=== PATIENT | female | born 1975 | race Asian ===

== ENCOUNTER 2018-08-23 07:35 | Day surgery (SDC) | payer OTHER ==
[2018-08-23] VITALS (15 sets, daily range): BP systolic 115–137; BP diastolic 57–87; PULSE 52–72; RESP 16–23; Ht 154.9 cm; Wt 61.8 kg
[~2018-08-23] VITALS: Ht 154.9 cm; Wt 61.8 kg
[~2018-08-23 07:35] MED LIST: ALBU8.5H5 IH; ALBU8.5H8 INH; PRED20TA PO
[2018-08-23] MEDS ORDERED: LAMO100T PO (08:27)
[2018-08-23] MEDS ORDERED: CLON0.5T14 PO (08:27)
[2018-08-23] MEDS ORDERED: BUPR300T4 PO (08:27)
[2018-08-23] MEDS ORDERED: POTA10TA37 PO (08:28)
[2018-08-23] MEDS ORDERED: SOD CHLORIDE 0.9% 1,000 ML IV SCH (09:00)
[2018-08-23] MEDS ORDERED: CEFAZOLIN 2 GM/50 ML (PMX) 50 ML IVPB SCH (09:00)
--- NOTE | 2018-08-23 11:41 | PREAC ---
Date/Time of Note Date/Time of Note DATE: 08/23/18 TIME: 11:40 Anesthesia Eval and Record Evaluation Time Pre-Procedure Interview DATE: 08/23/18 TIME: 11:40 Age 42 Sex female NPO: 8 hrs Preoperative diagnosis cholelithiasis Planned procedure laparoscopic cholecystectomy Past Medical History Past Medical History: Includes Pulm: Asthma Psych: Bipolar Surgery & Anesthesia Issues No known issue Meds Anticoagulation: No Beta Jair within 24 hr: No Reason Beta Jair not given: Pt. not on B-Jair Reported Medications Potassium Chloride* (K-Dur*) 10 Meq Tab.prt.sr, 10 MEQ PO DAILY, TAB 08/23/18 Clonazepam* (Clonazepam*) 0.5 Mg Tablet, 0.5 MG PO DAILY PRN for ANXIETY, TAB 08/23/18 Lamotrigine* (Lamotrigine*) 100 Mg Tablet, 125 MG PO BID, TAB 08/23/18 Bupropion Hcl* (Bupropion XL*) 300 Mg Tab.sr.24h, 300 MG PO DAILY, TAB.SA 08/23/18 Discontinued Reported Medications Albuterol Sulfate* (Albuterol Sulfate* HFA) 8.5 Gm Hfa.aer.ad, 2 PUFF IH Q4H PRN for WHEEZING AND SOB, EA 01/28/15 Discontinued Scripts Albuterol Sulfate* (Proair HFA*) 8.5 Gm Hfa.aer.ad, 2 PUFF INH Q4, #1 INHALER Prov:JEYSON BLEVINS PA-C 04/06/16 Prednisone* (Prednisone*) 20 Mg Tab, 40 MG PO DAILY for 4 Days, TAB Prov:JEYSON BLEVINS PA-C 04/06/16 Current Medications Cefazolin Sodium/ Dextrose 50 ml @ 100 mls/hr PRE-OP IVPB ; Start 08/23/18 at 09:00; Stop 08/23/18 at 13:00 Sodium Chloride 1,000 ml @ 75 mls/hr [id number] IV Last administered on 08/23/18at 08:50; Admin Dose 75 MLS/HR; Start 08/23/18 at 09:00 Meds reviewed: Yes Allergies Coded Allergies: No Known Allergy (Verified , 08/23/18) Allergies Reviewed: Yes Labs/Studies Labs Reviewed: Reviewed by anesthesiologist Result Diagram: 08/23/18 0845 08/23/18 0845 Laboratory Tests 08/23/18 08:45 test: Negative Pre-procedure Exam Last vitals Vital Signs Date Temp Pulse Resp B/P (MAP) Pulse Ox O2 O2 Flow FiO2 Time Delivery Rate 08/23/18 98.5 72 16 124/83 98 Room Air 09:04 (97) Airway: Adequate mouth opening, Adequate thyromental dist Mallampati: Mallampati I Teeth: Normal Lung: Normal Heart: Normal ASA Physical Status ASA physical status: 2 Emergency: None Planned Anesthetic General/MAC: ETT Planned Pain Management Parenteral pain med Pre-operative Attestations Prior to commencing anesthesia and surgery, the patient was re-evaluated, there was verification of: *The patient's identity *The results of appropriate recent lab work and preoperative vital signs *The above evaluation not changing prior to induction *Anesthetic plan, risk benefits, alternative and complications discussed with patient/family; questions answered; patient/family understands, accepts and wishes to proceed. JEYSON MERRILL August 23, 2018 11:41
[2018-08-23] MEDS ORDERED: CEFAZOLIN 1 GM INJ ONE (11:55)
[2018-08-23] MEDS ORDERED: ROCURONIUM 50 MG INJ ONE (11:55)
[2018-08-23] MEDS ORDERED: PROPOFOL 100 ML ONE (11:55)
[2018-08-23] MEDS ORDERED: LIDOCAINE 2% (SDV) 5 ML INJ ONE (11:55)
[2018-08-23] MEDS ORDERED: BUPIVACAINE 0.25% (MPF) 30 ML INJ ONE (12:08)
[2018-08-23] MEDS ORDERED: ONDANSETRON 4 MG INJ ONE (12:12)
[2018-08-23] MEDS ORDERED: DEXAMETHASONE 4 MG/ML 5 ML INJ ONE (12:12)
[2018-08-23] MEDS ORDERED: NEOSTIGMINE 3 MG/3 ML SYRINGE ONE (12:39)
[2018-08-23] MEDS ORDERED: GLYCOPYRROLATE 0.4 MG INJ ONE (12:40)
--- NOTE | 2018-08-23 12:47 | OPR ---
Date/Time of Note Date/Time of Note DATE: 08/23/18 TIME: 12:45 Operative Report Procedure Date: August 23, 2018 Preoperative Diagnosis symptomatic gallstones Postoperative Diagnosis same Operation/Procedure Performed laparoscopic cholecystectomy Surgeon see signature line [employer]iting Intern none Anesthesia Type: general Estimated Blood Loss: 10 - 50 ml's Transfusion none Specimen gallbladder Grafts/Implants none Complications none Pt Condition Post Procedure: stable Indications This is a 42-year-old female with some tender gallstones. He she required surgical excision of her gallbladder. Risks alternatives benefits and personally discussed the patient. Patient expressed understanding consents to the operation. Procedure Description Patient is taken to the OR and prepped and draped in usual sterile fashion. Surgical time was performed. IV antibiotics given. Infraumbilical incision was made transversely with a 15 blade. Dissection with cautery was carried onto the fascia. The fascia was grasped with [place] is divided with curved Fletcher scissors. 0 Vicryl use this was placed into the fascia. Garcia trocar was introduced. Pneumoperitoneum was established. Midepigastric 12 mm optical trochars placed in direct physician. Right upper quadrant upper flank 5 mm optical trochars we re placed under direct physician. Upon initial inspection there is adhesions of the gallbladder which were taken down bluntly. The gallbladder is grasped with the fundus and retracted lateral cephalad direction. [place] graspers were used to dissect out the cystic duct and cystic artery. The critical view was established. The cystic duct is divided to close proximal completion divisions performed laparoscopic scissors. Cystic artery was divided to close proximal to distal and the divisions performed laparoscopic scissors. The gallbladder was taken of the gallbladder bed. Good hemostasis established the surgical site. The gallbladder is retrieved Endo Catch bag. All ports were removed under direct physician. 0 Vicryl use this in the infraumbilical fascial space was tied down. Skin is closed and skin trevor. Therapeutic contains local anesthesia injected at the incision site. Dry dressings were applied. Geovany DE LA CRUZ August 23, 2018 12:47
--- NOTE | 2018-08-23 12:55 | PAC ---
Date/Time of Note Date/Time of Note DATE: 08/23/18 TIME: 12:55 Post-Anesthesia Notes Post-Anesthesia Note Last documented vital signs Vital Signs Date Temp Pulse Resp B/P (MAP) Pulse Ox O2 O2 Flow FiO2 Time Delivery Rate 08/23/18 98.5 72 16 124/83 98 Room Air 1255 (97) Activity: WNL Respiratory function: WNL Cardiovascular function: WNL Mental status: Baseline Pain reasonably controlled: Yes Hydration appropriate: Yes Nausea/Vomiting absent: Yes JEYSON MERRILL August 23, 2018 12:55
[2018-08-23] MEDS ORDERED: ALBUTEROL 0.083% (NEB) 2.5 MG/3 ML AMP HHN PRN (13:00)
[2018-08-23] MEDS ORDERED: LABETALOL HCL 20MG INJ IV PRN (13:00)
[2018-08-23] MEDS ORDERED: FENTAnyl 50 MCG/ML VIAL IV PRN ×3 (13:00)
[2018-08-23] MEDS ORDERED: MEPERIDINE 25 MG INJ IV PRN (13:00)
[2018-08-23] MEDS ORDERED: KETOROLAC 30 MG INJ IV PRN (13:00)
[2018-08-23] MEDS ORDERED: hydrALAzine 20 MG INJ IV PRN (13:00)
[2018-08-23] MEDS ORDERED: HYDROmorphONE 1 MG/5 ML IV SYRINGE IV PRN ×3 (13:00)
[2018-08-23] MEDS ORDERED: ONDANSETRON 4 MG INJ IV PRN (13:00)
[2018-08-23] MEDS ORDERED: HYDROCODONE/APAP (5/325) TAB PO ONE (13:00)
[2018-08-23] MEDS ORDERED: METOCLOPRAMIDE 10 MG INJ IV PRN (13:00)
[2018-08-23] MEDS ORDERED: DIPHENHYDRAMINE 50 MG INJ IV PRN (13:00)
[2018-08-23] MEDS ORDERED: OXYCODONE/ACETAMINOPHEN (5/325) TAB PO PRN ×2 (13:00)
[2018-08-23] MEDS ORDERED: EPHEDrine SULFATE 50 MG/5 ML SYG IV PRN (13:00)
== END 2018-08-23 15:25 | disposition home or self-care (01) ==
LOC: SDS 07:35
PROVIDERS: ATTEND Surgery
DX: K80.10 Calculus of gallbladder with chronic cholecystitis without obstruction (principal); J45.909 Unspecified asthma, uncomplicated
CPT/HCPCS: 47562; 80053; 84703; 85025; 85610; 85730; 88304; J0690; J1100; J1170; J1885; J2405; J2710; J3010; Z7512; Z7610

== ENCOUNTER 2018-08-24 22:03 | Emergency (ER) | payer OTHER ==
[~2018-08-24] VITALS: Ht 154.9 cm; Wt 61.8 kg
[~2018-08-24 22:03] MED LIST changes: -ALBU8.5H5 IH; -ALBU8.5H8 INH; +BUPR300T4 PO; +CLON0.5T14 PO; +LAMO100T PO; +POTA10TA37 PO; -PRED20TA PO
[2018-08-24 22:24] VITALS: Ht 154.9 cm; Wt 61.8 kg
[2018-08-24] MEDS ORDERED: SOD CHLORIDE 0.9% 1,000 ML IV STA (22:45)
--- NOTE | 2018-08-24 22:45 | ERD ---
ER Documentation Chief Complaint Chief Complaint S/P GIOVANNI YESTERDAY. WEAK, DIZZY. SCANT BLEEDING NOTED ON SURG INCISION HPI 42-year-old female status post laparoscopic cholecystectomy by Dr. Gtz yesterday presenting to the ER complaining of dizziness and bleeding noted from her periumbilical surgical incision. She had a near syncopal episode while in the ER waiting room and was diaphoretic per her boyfriend. She has not had any severe abdominal pain. Her pain is the same as it was after surgery, 5 out of 10, aching, mostly in the mid abdomen. No alleviating or exacerbating factors. She states that there has been constant oozing from her incision near her bellybutton. No dysuria or hematuria. ROS All systems reviewed and are negative except as per history of present illness. Medications Home Meds Reported Medications Potassium Chloride* (K-Dur*) 10 Meq Tab.prt.sr, 10 MEQ PO DAILY, TAB 08/23/18 Clonazepam* (Clonazepam*) 0.5 Mg Tablet, 0.5 MG PO DAILY PRN for ANXIETY, TAB 08/23/18 Lamotrigine* (Lamotrigine*) 100 Mg Tablet, 125 MG PO BID, TAB 08/23/18 Bupropion Hcl* (Bupropion XL*) 300 Mg Tab.sr.24h, 300 MG PO DAILY, TAB.SA 08/23/18 Discontinued Reported Medications Albuterol Sulfate* (Albuterol Sulfate* HFA) 8.5 Gm Hfa.aer.ad, 2 PUFF IH Q4H PRN for WHEEZING AND SOB, EA 01/28/15 Discontinued Scripts Albuterol Sulfate* (Proair HFA*) 8.5 Gm Hfa.aer.ad, 2 PUFF INH Q4, #1 INHALER Prov:JEYSON BLEVINS PA-C 04/06/16 Prednisone* (Prednisone*) 20 Mg Tab, 40 MG PO DAILY for 4 Days, TAB Prov:JEYSON BLEVINS PA-C 04/06/16 Allergies Allergies: Coded Allergies: No Known Allergy (Verified , 08/23/18) PMhx/Soc History of Surgery: No Anesthesia Reaction: No Hx Neurological Disorder: No Hx Cardiac Disorders: No Hx Psychiatric Problems: Yes (SUICIDAL HX, ON MEDICATIONS) Hx Miscellaneous Medical Probl: No Hx Alcohol Use: Yes (SOCIAL) Hx Substance Use: Yes (CANNABIS) Hx Tobacco Use: Yes FmHx Family History: No diabetes Physical Exam Vitals Vital Signs Date Temp Pulse Resp B/P (MAP) Pulse Ox O2 O2 Flow FiO2 Time Delivery Rate 08/25/18 74 17 94/58 (70) 100 Room Air 02:15 08/25/18 81 16 99/62 (74) 100 Room Air 01:00 08/25/18 70 17 101/65 100 Room Air 00:15 (77) 08/24/18 68 20 93/65 (74) 100 Room Air 22:48 08/24/18 99.9 55 22 99 22:24 Physical Exam Const: No acute distress, appears somewhat ill and pale Head: Atraumatic Eyes: Normal Conjunctiva ENT: Dry mucous membranes. Pale lips. Normal External Ears, Nose and Mouth. Neck: Full range of motion. No meningismus. Resp: Clear to auscultation bilaterally Cardio: Regular rate and rhythm, no murmurs. 2+ distal pulses Abd: Soft, mildly distended, mild tenderness around the umbilicus and epigast rium. No rebound or guarding. Incisional sites with trevor in place, appear to be well-healing. Infraumbilical incision with oozing of blood and surrounding mild bruising.. Normal bowel sounds Skin: No petechiae or rashes Back: No midline or flank tenderness Ext: No cyanosis, or edema Neur: Awake and alert, normal speech, no facial asymmetry, moving all extremities Psych: Normal Mood and Affect Result Diagram: 08/25/18 0118 08/24/18 8163 Results 24 hrs Laboratory Tests Test 08/24/18 02:00 08/24/18 22:59 08/25/18 01:18 08/25/18 02:23 Urine Color YELLOW Urine Clarity CLOUDY Urine pH 5.0 Urine Specific 1.024 [place]att Urine Ketones NEGATIVE mg/dL Urine Nitrite NEGATIVE mg/dL Urine Bilirubin NEGATIVE mg/dL Urine NEGATIVE mg/dL Urobilinogen Urine Leukocyte TRACE Sen/ul Esterase Urine 4 /HPF Microscopic RBC Urine 16 /HPF Microscopic WBC Urine Squamous FEW /HPF Epithelial Cells Urine Bacteria FEW /HPF Urine Mucus MANY /HPF Urine Hemoglobin NEGATIVE mg/dL Urine Glucose NEGATIVE mg/dL Urine Total NEGATIVE mg/dl Protein White Blood 8.1 10^3/ul 8.9 10^3/ul Count Red Blood Count 3.71 10^6/ul 3.26 10^6/ul Hemoglobin 10.6 g/dl 9.4 g/dl Hematocrit 33.3 % 29.3 % Mean Corpuscular 89.8 fl 89.9 fl Volume Mean Corpuscular 28.6 pg 28.8 pg Hemoglobin Mean Corpuscular 31.8 g/dl 32.1 g/dl Hemoglobin Annabelle nt Red Cell 13.9 % 14.1 % Distribution Width Platelet Count 267 10^3/UL 200 10^3/UL Mean Platelet 9.3 fl 9.0 fl Volume Immature 0.200 % 0.400 % Granulocytes % Neutrophils % 61.4 % 81.5 % Lymphocytes % 29.2 % 12.0 % Monocytes % 7.9 % 5.2 % Eosinophils % 0.9 % 0.6 % Basophils % 0.4 % 0.3 % Nucleated Red 0.0 /100WBC 0.0 /100WBC Blood Cells % Immature 0.020 10^3/ul 0.040 10^3/ul Granulocytes # Neutrophils # 5.0 10^3/ul 7.3 10^3/ul Lymphocytes # 2.4 10^3/ul 1.1 10^3/ul Monocytes # 0.6 10^3/ul 0.5 10^3/ul Eosinophils # 0.1 10^3/ul 0.1 10^3/ul Basophils # 0.0 10^3/ul 0.0 10^3/ul Nucleated Red 0.0 10^3/ul 0.0 10^3/ul Blood Cells # Sodium Level 139 mmol/L Potassium Level 3.9 mmol/L Chloride Level 104 mmol/L Carbon Dioxide 28 mmol/L Level Anion Gap 7 Blood Urea 17 mg/dl Nitrogen Creatinine 0.97 mg/dl Est Glomerular > 60 mL/min Filtrat Rate mL/min Glucose Level 128 mg/dl Calcium Level 9.1 mg/dl Total Bilirubin 0.1 mg/dl Direct Bilirubin 0.00 mg/dl Indirect 0.1 mg/dl Bilirubin Aspartate Amino 69 IU/L Transf (AST/SGOT ) Alanine 92 IU/L Aminotransferase (ALT/SGPT) Alkaline 111 IU/L Phosphatase Troponin I < 0.012 ng/ml Total Protein 6.5 g/dl Albumin 3.9 g/dl Globulin 2.60 g/dl Albumin/Globulin 1.50 Ratio Lipase 89 U/L Serum HCG, NEGATIVE Qualitative POC Beta HCG, NEGATIVE Qualitative Test 08/25/18 02:28 Bedside Urine pH 6.0 (LAB) Bedside Urine Negative Protein (LAB) Bedside Urine Negative Glucose (UA) Bedside Urine Negative Ketones (LAB) Bedside Urine Negative Blood Bedside Urine Negative Nitrite (LAB) Bedside Urine Trace Leukocyte Estera se (L Current Medications Medications Dose Sig/Ellis Start Time Status Last (Trade) Ordered Route PRN Stop Time Admin Dose Reason Admin Sodium 1,000 ml @ Q1H STAT 08/24/18 DC 08/24/18 Chloride 1,000 mls/hr IV 22:45 22:40 08/24/18 23:44 IV Flush 10 ml STK-MED 08/25/18 DC 08/25/18 (NS 10 ml) ONCE .ROUTE 01:52 02:42 08/25/18 01:53 Sodium 100 ml @ ud STK-MED 08/25/18 DC 08/25/18 Chloride ONCE .ROUTE 01:52 02:42 08/25/18 01:53 Iohexol 150 ml STK-MED 08/25/18 DC 08/25/18 (Omnipaque ONCE .ROUTE 01:52 02:42 300mg/ ml) 08/25/18 01:53 Procedures/MDM EMERGENT LABS AND DIAGNOSTIC STUDIES: Lab Results above were reviewed and interpreted by me. CBC: Mild anemia, no evidence of infection. Repeat CBC after IV fluids, show slight drop in hemoglobin. CMP: Mild transaminitis, expected after recent cholecystectomy. No evidence of clinically significant electrolyte abnormality, acidosis, renal failure, hypoglycemia, liver disease, or biliary obstruction Troponin within normal limits, not indicative of cardiac ischemia Lipase is within normal limits, no evidence of pancreatitis UA: Elevated WBCs, however patient asymptomatic 12-lead EKG was interpreted by Kathy Cui MD: Sinus bradycardia 59 bpm Mal Sinus Rhythm with ventricular rate of [] beats per minute Normal axis Normal intervals No acute ST or T wave changes suggestive of acute ischemia or STEMI. Radiology Results as interpreted by Radiology below were reviewed by SAlejandrina Cui MD: Ultrasound fast negative for free fluid Chest x-ray shows no acute abnormalities CT abdomen pelvis shows a small abdominal wall hematoma at the periumbilical surgical site. Other changes are consistent with recent surgery, no significant intra-abdominal pathology. Incidentally noted ovarian cysts Initial Nursing notes reviewed. Previous Medical Records requested via the Electronic Health Record. EMERGENCY DEPARTMENT COURSE / MEDICAL DECISION MAKING: Patient is presenting after a near syncopal episode after having surgery yesterday. She does appear slightly dehydrated on exam. She has mild oozing from her infraumbilical surgical site but there is no evidence of infection or severe hemorrhage. I doubt intraperitoneal hemorrhage. FAST exam was negative. After IV fluids were given, repeat CBC was done and showed a drop in hemoglobin. For this reason a CT abdomen and pelvis was ordered to rule out intraperitoneal bleeding. CT did not show any significant abnormalities other than a small abdominal wall hematoma, likely causing the bleeding from her surgical site. Upon reevaluation, the bleeding has actually stopped. After IV fluids, the patient feels much better and is able to walk without any dizziness or instability. I have a low suspicion for acute postsurgical infection. Patient feels well and feels comfortable going home. I feel she is stable for discharge. Strict return precautions were discussed. Follow-up with gynecology was also recommended for the ovarian cyst seen on her CT scan. However she has no symptoms from these cysts at this time. Further work-up here is not necessary. Patient's blood pressure was elevated (>120/80) but appears stable without evidence of hypertensive emergency or urgency. The patient was counseled about the risks of hypertension and urged to pursue outpatient monitoring and therapy within a week with their primary care physician. Departure Diagnosis: Primary Impression: Bleeding from wound Additional Impressions: Status post cholecystectomy Anemia Anemia type: iron deficiency Iron deficiency anemia type: unspecified iron deficiency Qualified Codes: D50.9 - Iron deficiency anemia, unspecified Dehydration Postprocedural hematoma of abdominal wall Condition: Stable JULI CUI MD August 24, 2018 22:45
[2018-08-25] MEDS ORDERED: SOD CHLORIDE 0.9% 100 ML ONE (01:52)
[2018-08-25] MEDS ORDERED: IOHEXOL 300MG/ML 150 ML BTL ONE (01:52)
[2018-08-25 04:31] VITALS: BP 109/77; PULSE 70; RESP 19
[2018-08-25] MEDS ORDERED: ONDANSETRON 4 MG INJ IV STA (04:35)
[2018-08-25] MEDS ORDERED: HYDROCODONE/APAP (5/325) TAB PO ONE (05:00)
== END 2018-08-25 04:57 | disposition home or self-care (01) ==
LOC: E/R 22:03
DX: K91.840 Postprocedural hemorrhage of a digestive system organ or structure following a digestive system procedure (principal); D50.9 Iron deficiency anemia, unspecified; E86.0 Dehydration; Z87.891 Personal history of nicotine dependence; Z90.49 Acquired absence of other specified parts of digestive tract
CPT/HCPCS: 36415; 71045; 74177; 76705; 80053; 81001; 81025; 83690; 84484; 84703; 85025; 86850; 86900; 86901; 93005; 96374; J2405; J7030; Q9967; Z7502; Z7610; 81003

== ENCOUNTER 2018-08-30 21:56 | Emergency (ER) | payer OTHER ==
[~2018-08-30] VITALS: Wt 61.5 kg
[2018-08-31] MEDS ORDERED: AMOX1TAB10 PO (03:18)
[2018-08-31] MEDS ORDERED: ONDA4TAB95 PO (03:18)
[2018-08-31] MEDS ORDERED: ALBU18HF INHALATION (03:18)
[2018-08-31] MEDS ORDERED: HYDR-4011 PO (03:18)
--- NOTE | 2018-08-31 04:45 | ERD ---
ER Documentation Chief Complaint Chief Complaint RUQ PAIN S/P CHOLECYSTECTOMY 7 DAYS AGO HPI This is a 42-year-old female presents for evaluation of right upper quadrant pain, that is described as intermittent and sharp. Patient had occult vasectomy 7 days ago, she been taking oxycodone for the pain, however this pain felt different in terms of location, with radiation to the right side, and her postop pain has been mostly epigastric. She has not had a fever, she has not been vomiting, she has not had any diarrhea. ROS All systems reviewed and are negative except as per history of present illness. Medications Home Meds Reported Medications Ondansetron Hcl* (Ondansetron Hcl*) 4 Mg Tablet, 4 MG PO DAILY PRN for NAUSEA AND/OR VOMITING 08/31/18 Albuterol Sulfate* (Ventolin HFA*) 18 Gm Hfa.aer.ad, 2 PUFF INHALATION Q4H, #1 INHALER 08/31/18 Amoxicillin/Potassium Clav (Amox-Clav 875-125 mg Tablet) 875-125 mg Tab, 1 TAB PO Q12H 08/31/18 Hydrocodone/Acetaminophen ([place] 5-325 Tablet) 1 Each Tablet, 1 EACH PO Q6H PRN for PAIN LEVEL 1-5, TAB 08/31/18 Potassium Chloride* (K-Dur*) 10 Meq Tab.prt.sr, 10 MEQ PO DAILY, TAB 08/23/18 Clonazepam* (Clonazepam*) 0.5 Mg Tablet, 0.5 MG PO DAILY PRN for ANXIETY, TAB 08/23/18 Lamotrigine* (Lamotrigine*) 100 Mg Tablet, 125 MG PO BID, TAB 08/23/18 Bupropion Hcl* (Bupropion XL*) 300 Mg Tab.sr.24h, 300 MG PO DAILY, TAB.SA 08/23/18 Allergies Allergies: Coded Allergies: No Known Allergy (Unverified , 08/31/18) PMhx/Soc History of Surgery: Yes (lap jackie yesterday) Anesthesia Reaction: No Hx Neurological Disorder: No Hx Cardiac Disorders: Yes (htn- diet controlled) Hx Psychiatric Problems: Yes (SUICIDAL HX, ON MEDICATIONS) Hx Miscellaneous Medical Probl: No Hx Alcohol Use: Yes (SOCIAL) Hx Substance Use: Yes (CANNABIS) Hx Tobacco Use: Yes Smoking Status: Current every day smoker Physical Exam Vitals Vital Signs Date p Pulse Resp B/P (MAP) Pulse Ox O2 O2 Flow FiO2 Time Delivery Rate 08/31/18 98.1 83 15 133/68 100 Room Air 01:45 (89) 08/31/18 98.0 79 18 135/91 99 Room Air 01:02 (106) 08/30/18 99.0 91 18 145/90 99 22:21 (108) Physical Exam Const: No acute distress, well-developed well-nourished Head: Atraumatic Eyes: Normal Conjunctiva ENT: Normal External Ears, Nose and Mouth. Neck: Full range of motion. No meningismus. Resp: Clear to auscultation bilaterally Cardio: Regular rate and rhythm, no murmurs Abd: Soft, there is some tenderness over the right upper quadrant, incision sites are clean dry and intact, there is no surrounding erythema or drainage. Abdomen is nondistended, bowel sounds are normal, there is no rebound or guarding Skin: No petechiae or rashes Back: No midline or flank tenderness Ext: No cyanosis, or edema Neur: Awake and alert Psych: Normal Mood and Affect Result Diagram: 08/31/18 0109 08/31/18 0149 Results 24 hrs Laboratory Tests Test 08/31/18 01:09 08/31/18 01:39 08/31/18 01:49 White Blood Count 6.1 10^3/ul Red Blood Count 4.12 10^6/ul Hemoglobin 11.9 g/dl Hematocrit 37.0 % Mean Corpuscular Volume 89.8 fl Mean Corpuscular Hemoglobin 28.9 pg Mean Corpuscular 32.2 g/dl Hemoglobin Concent Red Cell Distribution Width 13.7 % Platelet Count 361 10^3/UL Mean Platelet Volume 9.1 fl Immature Granulocytes % 0.200 % Neutrophils % 68.9 % Lymphocytes % 19.4 % Monocytes % 6.6 % Eosinophils % 4.4 % Basophils % 0.5 % Nucleated Red Blood Cells % 0.0 /100WBC Immature Granulocytes # 0.010 10^3/ul Neutrophils # 4.2 10^3/ul Lymphocytes # 1.2 10^3/ul Monocytes # 0.4 10^3/ul Eosinophils # 0.3 10^3/ul Basophils # 0.0 10^3/ul Nucleated Red Blood Cells # 0.0 10^3/ul Urine Color YELLOW Urine Clarity CLEAR Urine pH 6.0 Urine Specific [place] 1.030 Urine Ketones NEGATIVE mg/dL Urine Nitrite NEGATIVE mg/dL Urine Bilirubin NEGATIVE mg/dL Urine Urobilinogen 1+ mg/dL Urine Leukocyte Esterase NEGATIVE Sen/ul Urine Hemoglobin NEGATIVE mg/dL Urine Glucose NEGATIVE mg/dL Urine Total Protein NEGATIVE mg/dl Sodium Level 142 mmol/L Potassium Level 4.2 mmol/L Chloride Level 107 mmol/L Carbon Dioxide Level 27 mmol/L Anion Gap 8 Blood Urea Nitrogen 16 mg/dl Creatinine 0.71 mg/dl Est Glomerular Filtrat > 60 mL/min Rate mL/min Glucose Level 92 mg/dl Calcium Level 9.2 mg/dl Total Bilirubin 0.4 mg/dl Direct Bilirubin 0.00 mg/dl Indirect Bilirubin 0.4 mg/dl Aspartate Amino 112 IU/L Transf (AST/SGOT) Alanine 126 IU/L Aminotransferase (ALT/SGPT) Alkaline Phosphatase 313 IU/L Total Protein 7.7 g/dl Albumin 4.3 g/dl Globulin 3.40 g/dl Albumin/Globulin Ratio 1.26 Lipase 48 U/L POC Beta HCG, Qualitative NEGATIVE Procedures/MDM This is a very pleasant 42-year-old female presents for relation of abdominal pain after recent cholecystectomy 7 days ago. She had no peritoneal signs on abdominal exam, and no infectious signs or symptoms, she is afebrile and evaluation, and had no leukocytosis. CT scan showed fluid in the gallbladder fossa consistent with postcholecystectomy. Her LFTs were mildly elevated, her left base was negative. An extensive discussion with the patient regarding her findings, her pain is actually improved and she felt comfortable going home, I informed her that I could not definitively rule out a postop infection, however at this time as she has no fever and his pain is controlled, she felt co mfortable with being discharged home, advised her to return to the ED for a 24- hour recheck, she agreed to this, she does have follow-up with her general surgeon next week, at discharge she was in no distress, strict return precautions were given for fever worsening abdominal pain or any other zackery rning symptoms for which she should return immediately to the ED. EKG: Rate/Rhythm: Normal Sinus Rhythm QRS, ST, T-waves: No changes consistent w/ acute ischemia Impression: No evidence of ischemia or arrhythmia Departure Diagnosis: Primary Impression: Abdominal pain Abdominal location: unspecified location Qualified Codes: R10.9 - Unspecified abdominal pain Condition: Stable BRADY NEAL MD August 31, 2018 04:44
[2018-08-31 05:20] VITALS: BP 130/81; PULSE 81; RESP 15
--- NOTE | 2018-08-31 14:24 | RADRPT ---
Vent Rate: 72 bpm RR Interval: 0 msec IN Interval: 160 msec QRS Duration: 100 msec QT Interval: 396 msec QTC Interval: 433 msec P-R-T [place]: 64 - 67 - 58 degrees Normal sinus rhythm Possible Left atrial enlargement Borderline ECG Electronically Signed By: [facility]
== END 2018-08-31 05:21 | disposition home or self-care (01) ==
LOC: E/R 21:56
DX: R10.11 Right upper quadrant pain (principal); F17.210 Nicotine dependence, cigarettes, uncomplicated; I10 Essential (primary) hypertension
CPT/HCPCS: 36415; 74176; 80053; 81003; 81025; 83690; 85025; 93005; Z7502

== ENCOUNTER 2018-09-03 00:05 | Emergency (ER) | payer OTHER ==
[~2018-09-03] VITALS: Wt 61.4 kg
[~2018-09-03 00:05] MED LIST changes: +ALBU18HF INHALATION; +AMOX1TAB10 PO; +HYDR-4011 PO; +ONDA4TAB95 PO
[2018-09-03] MEDS ORDERED: FAMOTIDINE 20 MG INJ IV STA (02:56)
[2018-09-03] MEDS ORDERED: SOD CHLORIDE 0.9% 1,000 ML IV STA (02:56)
[2018-09-03] MEDS ORDERED: ONDANSETRON 4 MG INJ IV STA (02:56)
--- NOTE | 2018-09-03 02:57 | ERD ---
ER Documentation Chief Complaint Chief Complaint chills, fever, dizzy, denies abd pain; intact surgical wound; gallladder sx HPI 42-year-old female, status post laparoscopic cholecystectomy 10 days ago, presents to the emergency department, complaining of nausea and diarrhea that is started today, the diarrhea is described as watery, nonbloody, nonmucous, approximately 4 episodes today. She denies abdominal pain, no fever, no chills, no urinary symptoms. ROS All systems reviewed and are negative except as per history of present illness. Medications Home Meds Reported Medications Ondansetron Hcl* (Ondansetron Hcl*) 4 Mg Tablet, 4 MG PO DAILY PRN for NAUSEA AND/OR VOMITING 08/31/18 Albuterol Sulfate* (Ventolin HFA*) 18 Gm Hfa.aer.ad, 2 PUFF INHALATION Q4H, #1 INHALER 08/31/18 Amoxicillin/Potassium Clav (Amox-Clav 875-125 mg Tablet) 875-125 mg Tab, 1 TAB PO Q12H 08/31/18 Hydrocodone/Acetaminophen ([place] 5-325 Tablet) 1 Each Tablet, 1 EACH PO Q6H PRN for PAIN LEVEL 1-5, TAB 08/31/18 Potassium Chloride* (K-Dur*) 10 Meq Tab.prt.sr, 10 MEQ PO DAILY, TAB 08/23/18 Clonazepam* (Clonazepam*) 0.5 Mg Tablet, 0.5 MG PO DAILY PRN for ANXIETY, TAB 08/23/18 Lamotrigine* (Lamotrigine*) 100 Mg Tablet, 125 MG PO BID, TAB 08/23/18 Bupropion Hcl* (Bupropion XL*) 300 Mg Tab.sr.24h, 300 MG PO DAILY, TAB.SA 08/23/18 Allergies Allergies: Coded Allergies: No Known Allergy (Unverified , 08/31/18) PMhx/Soc History of Surgery: Yes (lap jackie 10d ago) Anesthesia Reaction: No Hx Neurological Disorder: No Hx Cardiac Disorders: Yes (htn- diet controlled) Hx Psychiatric Problems: Yes (SUICIDAL HX, ON MEDICATIONS) Hx Miscellaneous Medical Probl: No Hx Alcohol Use: Yes (SOCIAL) Hx Substance Use: Yes ([place]) Hx Tobacco Use: Yes FmHx Family History: No diabetes, No coronary disease Physical Exam Vitals Vital Signs Date Temp Pulse Resp B/P (MAP) Pulse Ox O2 O2 Flow FiO2 Time Delivery Rate 09/03/18 99.0 122 20 150/100 99 00:11 (117) Physical Exam Const: No acute distress Head: Atraumatic Eyes: Normal Conjunctiva ENT: Normal External Ears, Nose and Mouth. Neck: Full range of motion. No meningismus. Resp: Clear to auscultation bilaterally Cardio: Regular rate and rhythm, no murmurs Abd: Soft, non tender, non distended. Normal bowel sounds Skin: No petechiae or rashes Back: No midline or flank tenderness Ext: No cyanosis, or edema Neur: Awake and alert Psych: Normal Mood and Affect Result Diagram: 09/03/1830609/03/18 030 Results 24 hrs Laboratory Tests Test 09/03/18 03:07 White Blood Count 5.1 10^3/ul Red Blood Count 4.30 10^6/ul Hemoglobin 12.5 g/dl Hematocrit 38.6 % Mean Corpuscular Volume 89.8 fl Mean Corpuscular Hemoglobin 29.1 pg Mean Corpuscular Hemoglobin Concent 32.4 g/dl Red Cell Distribution Width 13.5 % Platelet Count 378 10^3/UL Mean Platelet Volume 8.6 fl Immature Granulocytes % 0.200 % Neutrophils % 57.7 % Lymphocytes % 30.3 % Monocytes % 5.9 % Eosinophils % 4.9 % Basophils % 1.0 % Nucleated Red Blood Cells % 0.0 /100WBC Immature Granulocytes # 0.010 10^3/ul Neutrophils # 2.9 10^3/ul Lymphocytes # 1.5 10^3/ul Monocytes # 0.3 10^3/ul Eosinophils # 0.3 10^3/ul Basophils # 0.1 10^3/ul Nucleated Red Blood Cells # 0.0 10^3/ul Urine Color YELLOW Urine Clarity CLEAR Urine pH 5.0 Urine Specific [place] 1.028 Urine Ketones 1+ mg/dL Urine Nitrite NEGATIVE mg/dL Urine Bilirubin NEGATIVE mg/dL Urine Urobilinogen NEGATIVE mg/dL Urine Leukocyte Esterase NEGATIVE Sen/ul Urine Microscopic RBC 0 /HPF Urine Microscopic WBC 0 /HPF Urine Mucus FEW /HPF Urine Hemoglobin 2+ mg/dL Urine Glucose NEGATIVE mg/dL Urine Total Protein NEGATIVE mg/dl Sodium Level 143 mmol/L Potassium Level 3.6 mmol/L Chloride Level 104 mmol/L Carbon Dioxide Level 27 mmol/L Anion Gap 12 Blood Urea Nitrogen 19 mg/dl Creatinine 0.82 mg/dl Est Glomerular Filtrat Rate mL/min > 60 mL/min Glucose Level 93 mg/dl Calcium Level 9.6 mg/dl Total Bilirubin 0.3 mg/dl Direct Bilirubin 0.00 mg/dl Indirect Bilirubin 0.3 mg/dl Aspartate Amino Transf (AST/SGOT) 159 IU/L Alanine Aminotransferase (ALT/SGPT) 352 IU/L Alkaline Phosphatase 536 IU/L Total Protein 8.3 g/dl Albumin 4.7 g/dl Globulin 3.60 g/dl Albumin/Globulin Ratio 1.30 Lipase 59 U/L Current Medications Medications Dose Sig/Ellis Start Time Status Last (Trade) Ordered Route PRN Stop Time Admin Dose Reason Admin Sodium 1,000 ml @ Q1H STAT 09/03/18 DC 09/03/18 Chloride 1,000 mls/hr IV 02:56 03:23 09/03/18 03:55 Ondansetron 4 mg ONCE STAT 09/03/18 DC 09/03/18 HCl (Zofran IV 02:56 03:22 Inj) 09/03/18 02:59 Famotidine 20 mg ONCE STAT 09/03/18 DC 09/03/18 (Pepcid Iv) IV 02:56 03:22 09/03/18 02:59 Procedures/MDM Vital signs stable. Differential diagnosis include but not limited to: UTI, colitis, gastroenteritis, kidney stones, irritable bowel syndrome, inflammatory bowel syndrome, malabsorption syndrome, cholelithiasis, food intolerance, medication side effect, pancreatitis, diverticulitis, bowel obstruction. Physical examination and clinical presentation consistent most likely with ga stroenteritis or side effect of medication, low suspicion for acute abdomen. During the ED course the patient remained stable, no new complaints. The patient received treatment with IV fluids and IV medications presenting overall improvement of the symptoms. Results and clinical impression discussed with the patient who agrees with management. The patient is stable to be treated outpatient and will be discharged home. The patient was informed that the evaluation in the emergency department has been done to rule out an acute emergency, therefore, chronic conditions like malignancy or other diseases have not been evaluated; therefore, the patient was instructed to follow up with the primary care provider in the next 48h. If symptoms persist, worsen or new symptoms develop, then patient should return to the ED immediately. Instructions explained and given directly by me to the patient with acknowledgment and demonstrated understanding. Disclaimer: Inadvertent spelling and grammatical errors are likely due to EHR/dictation software use and do not reflect on the overall quality of patient care. Also, please note that the electronic time recorded on this note does not necessarily reflect the actual time of the patient encounter. Departure Diagnosis: Primary Impression: Nausea Additional Impression: Diarrhea Condition: Stable Additional Instructions: Thank you very much for allowing us to participate in your care. Your health and safety is our top priority at [facility]. Call your primary care doctor TOMORROW for an appointment during the next 2-4 days and bring all the information provided. Have prescriptions filled and follow precisely the directions on the label. If the symptoms get worse and your provider is unavailable, return to the Emergency Department immediately. JAMES FERNANDEZ MD September 03, 2018 02:57
[2018-09-03 04:45] VITALS: BP 139/81; PULSE 85; RESP 20
== END 2018-09-03 04:57 | disposition home or self-care (01) ==
LOC: FTE 00:05
DX: R11.0 Nausea (principal); R19.7 Diarrhea, unspecified; I10 Essential (primary) hypertension; Z87.891 Personal history of nicotine dependence
CPT/HCPCS: 36415; 80053; 81001; 83690; 85025; 96374; 96375; J2405; J7030; Z7502; Z7610